=== PATIENT | male | born 1985 | race Caucasian/White ===

== ENCOUNTER → 2016-09-16 | Outpatient (CLI) | payer BC | LOC: M LAB 13:59 | PROVIDERS: ATTEND Internal Medicine | DX: Z13.1 Encounter for screening for diabetes mellitus (principal); I10 Essential (primary) hypertension ==

== ENCOUNTER → 2016-09-30 | Outpatient (REF) | payer BC | LOC: M SFHCPLAZ 16:26 | DX: I10 Essential (primary) hypertension (principal) ==

== ENCOUNTER → 2017-04-23 | Outpatient (CLI) | payer BC ==
--- NOTE | 2017-04-23 17:39 | REP ---
Clinical: Shortness of breath . Comparison: 12/27/2011 . Technique: PA and lateral. Findings: The mediastinum and cardiac silhouette are normal. The lung padgett are clear and without acute consolidation, effusion, or pneumothorax. The skeletal structures are intact and normal. Impression: 1. No acute cardiopulmonary process. Signed by Dion Marquez MD 04/23/2017 05:31 P
== END ==
LOC: M RAD 17:21
PROVIDERS: ATTEND Emergency Medicine
DX: R06.02 Shortness of breath (principal)

== ENCOUNTER → 2017-05-11 | Outpatient (CLI) | payer BC | LOC: M WUC 16:19 | PROVIDERS: ATTEND Physician Assistant | DX: Z02.1 Encounter for pre-employment examination (principal) ==

== ENCOUNTER 2017-08-30 21:18 | Emergency (ER) | payer BC ==
[2017-08-30] MEDS: GASTROGRAFIN SOLUTION 30ML PO (22:15)
[2017-08-30] MEDS: GASTROGRAFIN SOLUTION 30ML (Q9963) PO (22:45)
[2017-08-30 22:47] LABS: BASO # 0.1 10^3/uL (0.0-0.2); BASO % 0.8 % (0.0-1.0); EOS # 0.1 10^3/uL (0.0-0.50); EOS % 1.4 % (0.0-3.0); HEMATOCRIT 46.8 % (42.0-52.0); HEMOGLOBIN 16.3 g/dl (14.0-18.0); IMMATURE GRANULOCYTE # 0.1 10^3/uL (0-0); IMMATURE GRANULOCYTE % 0.5 % (0-0); LYMPH # 2.5 10^3/uL (1.5-6.5); LYMPH % 25.6 % (24.0-44.0); MEAN CORPUSCULAR HEMOGLOBIN 31.8 pg (27.0-33.0); MEAN CORPUSCULAR HGB CONC 34.8 g/dl (32.0-36.5); MEAN CORPUSCULAR VOLUME 91.2 fl (80.0-96.0); MONO # 0.4 10^3/uL (0.0-0.8); MONO % 4.5 % (0.0-5.0); NEUTROPHILS # 6.5 10^3/uL (1.8-7.7); NEUTROPHILS % 67.2 % (36.0-66.0); PLATELET COUNT, AUTOMATED 231 10^3/uL (150-450); RED BLOOD COUNT 5.13 10^6/uL (4.30-6.10); RED CELL DISTRIBUTION WIDTH 12.3 % (11.5-14.5); WHITE BLOOD COUNT 9.8 10^3/uL (4.0-10.0)
[2017-08-30 22:50] LABS: APPEARANCE, URINE CLEAR (CLEAR); BACTERIA, URINE AUTO NEGATIVE (NEGATIVE); BILIRUBIN, URINE AUTO NEGATIVE (NEGATIVE); BLOOD, URINE BLOOD NEGATIVE (NEGATIVE); COLOR, URINE YELLOW (YELLOW); GLUCOSE, URINE (UA) AUTO 1+ mg/dL (NEGATIVE); KETONE, URINE AUTO NEGATIVE (NEGATIVE); LEUKOCYTE ESTERASE, URINE AUTO NEGATIVE (NEGATIVE); NITRITE, URINE AUTO NEGATIVE (NEGATIVE); PROTEIN, URINE AUTO NEGATIVE (NEGATIVE); RBC, URINE AUTO 0 /HPF (0-3); SPECIFIC GRAVITY URINE AUTO 1.018 (1.002-1.035); SQUAMOUS EPITHELIAL CELL UR AU 0 /HPF (0-6); WBC, URINE AUTO 0 /HPF (0-3)
[2017-08-30] MEDS: METOCLOPRAMIDE INJ 10MG/2ML VIAL (J2765) IV (22:55)
[2017-08-30] MEDS: KETOROLAC 30 MG/ML VIAL (J1885) IV (22:56)
[2017-08-30 23:14] LABS: ALBUMIN/GLOBULIN RATIO 1.38 (1.00-1.93); ALKALINE PHOSPHATASE 65 U/L (45-117); ALT/SGPT 136 U/L (12-78); AMYLASE 66 U/L (25-115); ANION GAP 4 MEQ/L (8-16); AST/SGOT 53 U/L (7-37); BILIRUBIN,DIRECT 0.1 MG/DL (0.0-0.2); BILIRUBIN,TOTAL 0.5 MG/DL (0.2-1.0); BLOOD UREA NITROGEN 8 MG/DL (7-18); C REACTIVE PROTEIN QUANTITATIV < 0.30 MG/DL (0.00-0.30); CALCIUM LEVEL 8.7 MG/DL (8.5-10.1); CARBON DIOXIDE LEVEL 30 MEQ/L (21-32); CHLORIDE LEVEL 106 MEQ/L (98-107); CREATININE FOR GFR 0.76 MG/DL (0.70-1.30); GLOMERULAR FILTRATION RATE > 60.0 (>60); GLUCOSE, FASTING 170 MG/DL (70-105); LIPASE 313 U/L (73-393); POTASSIUM SERUM 3.9 MEQ/L (3.5-5.1); SODIUM LEVEL 140 MEQ/L (136-145); TOTAL PROTEIN 6.9 GM/DL (6.4-8.2)
[2017-08-30] MEDS ORDERED: ISOVUE-370 76% 100ML VIAL (Q9967) As Ordered (23:29)
== END 2017-08-31 00:46 | disposition home or self-care (01) ==
LOC: M ED 08-31 00:46
DX: K31.84 Gastroparesis (principal); R73.9 Hyperglycemia, unspecified; I10 Essential (primary) hypertension; J45.909 Unspecified asthma, uncomplicated; Z87.19 Personal history of other diseases of the digestive system; F17.210 Nicotine dependence, cigarettes, uncomplicated
CPT/HCPCS: Q9963

== ENCOUNTER 2018-01-14 06:20 | Emergency (ER) | payer BC | END 2018-01-14 06:57 | disposition home or self-care (01) | LOC: M ED 06:20 | DX: M25.571 Pain in right ankle and joints of right foot (principal) | CPT/HCPCS: 73610 ==

== ENCOUNTER 2018-03-05 22:02 | Emergency (ER) | payer SELFPAY, BC ==
[2018-03-05] MEDS: ONDANSETRON 4MG/2ML VIAL (J2405) IV (23:16)
[2018-03-05] MEDS: NS 1,000 ML IV (23:16)
[2018-03-05] MEDS: MORPHINE 4 MG/ML 1ML VIAL/SYRINGE (J2270) IV (23:16)
[2018-03-05 23:19] LABS: BASO # 0.1 10^3/uL (0.0-0.2); BASO % 0.8 % (0.0-1.0); EOS # 0.2 10^3/uL (0.0-0.50); EOS % 2.1 % (0.0-3.0); HEMATOCRIT 45.4 % (42.0-52.0); HEMOGLOBIN 15.8 g/dl (13.5-17.5); IMMATURE GRANULOCYTE % 0.1 % (0-3.0); LYMPH # 2.8 10^3/uL (1.5-4.5); LYMPH % 37.2 % (24.0-44.0); MEAN CORPUSCULAR HEMOGLOBIN 31.9 pg (27.0-33.0); MEAN CORPUSCULAR HGB CONC 34.8 g/dl (32.0-36.5); MEAN CORPUSCULAR VOLUME 91.5 fl (80.0-96.0); MONO # 0.5 10^3/uL (0.0-0.8); NEUTROPHILS # 4.1 10^3/uL (1.8-7.7); NEUTROPHILS % 53.8 % (36.0-66.0); PLATELET COUNT, AUTOMATED 225 10^3/uL (150-450); RED BLOOD COUNT 4.96 10^6/uL (4.30-6.10); RED CELL DISTRIBUTION WIDTH 12.5 % (11.5-14.5); WHITE BLOOD COUNT 7.5 10^3/uL (4.0-10.0)
[2018-03-05 23:25] LABS: KETONE, URINE AUTO RFX NEGATIVE (NEGATIVE); LEUKOCYTE ESTERASE UR AUTO RFX NEGATIVE (NEGATIVE); MUCUS, URINE RFX SMALL (NEGATIVE); NITRITE, URINE AUTO RFX NEGATIVE (NEGATIVE); RBC, URINE AUTO RFX 0 /HPF (0-3); SPECIFIC GRAVITY UR AUTO RFX 1.023 (1.002-1.035); SQUAM EPITHELIAL CELL UR AURFX 0 /HPF (0-6); WBC, URINE AUTO RFX 1 /HPF (0-3)
[2018-03-05 23:39] LABS: ALBUMIN 4.2 GM/DL (3.2-5.2); ALBUMIN/GLOBULIN RATIO 1.27 (1.00-1.93); ALKALINE PHOSPHATASE 86 U/L (45-117); ALT/SGPT 116 U/L (12-78); ANION GAP 6 MEQ/L (8-16); AST/SGOT 48 U/L (7-37); BILIRUBIN,DIRECT 0.2 MG/DL (0.0-0.2); BILIRUBIN,TOTAL 0.7 MG/DL (0.2-1.0); BLOOD UREA NITROGEN 11 MG/DL (7-18); CALCIUM LEVEL 8.8 MG/DL (8.5-10.1); CARBON DIOXIDE LEVEL 31 MEQ/L (21-32); CHLORIDE LEVEL 107 MEQ/L (98-107); CREATININE FOR GFR 0.86 MG/DL (0.70-1.30); GLOMERULAR FILTRATION RATE > 60.0 (>60); GLUCOSE, FASTING 76 MG/DL (70-100); LIPASE 227 U/L (73-393); POTASSIUM SERUM 4.6 MEQ/L (3.5-5.1); SODIUM LEVEL 144 MEQ/L (136-145); TOTAL PROTEIN 7.5 GM/DL (6.4-8.2)
[2018-03-05 23:39] LABS: LACTIC ACID SEPSIS PROTOCOL 0.5 MMOL/L (0.4-2.0)
[2018-03-06] MEDS: GASTROGRAFIN SOLUTION 30ML PO ×2 (00:51→01:10)
[2018-03-06] MEDS ORDERED: ISOVUE-370 76% 100ML VIAL (Q9967) As Ordered (02:16)
[2018-03-06] MEDS: KETOROLAC 30 MG/ML VIAL (J1885) IV (02:19)
== END 2018-03-06 04:37 | disposition home or self-care (01) ==
LOC: M ED 03-06 04:37
DX: R10.84 Generalized abdominal pain (principal); K52.9 Noninfective gastroenteritis and colitis, unspecified; K76.0 Fatty (change of) liver, not elsewhere classified; K57.92 Diverticulitis of intestine, part unspecified, without perforation or abscess without bleeding; K31.84 Gastroparesis
CPT/HCPCS: J2270

== ENCOUNTER 2018-06-11 07:50 | Emergency (ER) | payer OTHER, SELFPAY ==
[2018-06-11 09:02] LABS: BASO # 0.1 10^3/uL (0.0-0.2); BASO % 0.9 % (0.0-1.0); EOS # 0.2 10^3/uL (0.0-0.50); EOS % 1.7 % (0.0-3.0); HEMATOCRIT 50.7 % (42.0-52.0); HEMOGLOBIN 17.5 g/dl (13.5-17.5); IMMATURE GRANULOCYTE % 0.6 % (0-3.0); LYMPH # 2.4 10^3/uL (1.5-4.5); LYMPH % 26.9 % (24.0-44.0); MEAN CORPUSCULAR HEMOGLOBIN 31.8 pg (27.0-33.0); MEAN CORPUSCULAR HGB CONC 34.5 g/dl (32.0-36.5); MEAN CORPUSCULAR VOLUME 92.2 fl (80.0-96.0); MONO # 0.6 10^3/uL (0.0-0.8); MONO % 6.2 % (0.0-5.0); NEUTROPHILS # 5.6 10^3/uL (1.8-7.7); NEUTROPHILS % 63.7 % (36.0-66.0); PLATELET COUNT, AUTOMATED 230 10^3/uL (150-450); RED CELL DISTRIBUTION WIDTH 12.8 % (11.5-14.5); WHITE BLOOD COUNT 8.8 10^3/uL (4.0-10.0)
[2018-06-11 09:32] LABS: ALBUMIN 4.1 GM/DL (3.2-5.2); ALBUMIN/GLOBULIN RATIO 1.21 (1.00-1.93); ALKALINE PHOSPHATASE 84 U/L (45-117); ALT/SGPT 95 U/L (12-78); ANION GAP 6 MEQ/L (8-16); AST/SGOT 34 U/L (7-37); BILIRUBIN,TOTAL 0.3 MG/DL (0.2-1.0); BLOOD UREA NITROGEN 9 MG/DL (7-18); CALCIUM LEVEL 9.3 MG/DL (8.5-10.1); CARBON DIOXIDE LEVEL 25 MEQ/L (21-32); CHLORIDE LEVEL 110 MEQ/L (98-107); CREATININE FOR GFR 0.74 MG/DL (0.70-1.30); GLOMERULAR FILTRATION RATE > 60.0 (>60); GLUCOSE, FASTING 99 MG/DL (70-100); POTASSIUM SERUM 4.7 MEQ/L (3.5-5.1); SODIUM LEVEL 141 MEQ/L (136-145); TOTAL PROTEIN 7.5 GM/DL (6.4-8.2)
[2018-06-11 10:22] LABS: HEPATITIS B SURFACE ANTIBODY POSITIVE (POSITIVE)
[2018-06-11 10:32] LABS: HEPATITIS B SURFACE ANTIGEN NEGATIVE (NEGATIVE)
[2018-06-11 11:00] LABS: HIV SCREEN CENTAUR EXPOSED NEGATIVE (NEGATIVE)
[2018-06-11 11:01] LABS: HEPATITIS C VIRUS ABY INDEX < 0.0 INDEX (<0.8)
== END 2018-06-11 09:24 | disposition home or self-care (01) ==
LOC: M ED 07:50
DX: S61.241A Puncture wound with foreign body of left index finger without damage to nail, initial encounter (principal); Z77.21 Contact with and (suspected) exposure to potentially hazardous body fluids; W46.1XXA Contact with contaminated hypodermic needle, initial encounter; Y92.9 Unspecified place or not applicable; Y93.F9 Activity, other caregiving; Y99.0 Civilian activity done for income or pay; Z72.0 Tobacco use
CPT/HCPCS: 80053

== ENCOUNTER 2018-09-05 23:05 | Emergency (ER) | payer OTHER ==
[~2018-09-05] VITALS: Ht 182.9 cm; Wt 118.2 kg
[~2018-09-05 23:05] MED LIST: REGL10TA6 PO
[2018-09-06 00:20] VITALS: BP 136/90
[2018-09-06 00:34] LABS: BASO # 0.1 10^3/uL (0.0-0.2); BASO % 0.7 % (0.0-1.0); EOS # 0.1 10^3/uL (0.0-0.50); EOS % 1.3 % (0.0-3.0); HEMATOCRIT 47.6 % (42.0-52.0); HEMOGLOBIN 16.6 g/dl (13.5-17.5); LYMPH # 3.8 10^3/uL (1.5-4.5); LYMPH % 34.4 % (24.0-44.0); MEAN CORPUSCULAR HEMOGLOBIN 31.4 pg (27.0-33.0); MEAN CORPUSCULAR HGB CONC 34.9 g/dl (32.0-36.5); MONO # 0.5 10^3/uL (0.0-0.8); MONO % 4.4 % (0.0-5.0); NEUTROPHILS # 6.4 10^3/uL (1.8-7.7); NEUTROPHILS % 58.9 % (36.0-66.0); PLATELET COUNT, AUTOMATED 247 10^3/uL (150-450); RED BLOOD COUNT 5.29 10^6/uL (4.30-6.10); WHITE BLOOD COUNT 10.9 10^3/uL (4.0-10.0)
[2018-09-06 00:49] LABS: ALBUMIN 4.5 GM/DL (3.2-5.2); ALT/SGPT 122 U/L (12-78); BILIRUBIN,TOTAL 0.5 MG/DL (0.2-1.0); BLOOD UREA NITROGEN 8 MG/DL (7-18); CALCIUM LEVEL 8.8 MG/DL (8.5-10.1); CARBON DIOXIDE LEVEL 27 MEQ/L (21-32); CHLORIDE LEVEL 108 MEQ/L (98-107); GLOMERULAR FILTRATION RATE > 60.0 (>60); GLUCOSE, FASTING 77 MG/DL (70-100); SODIUM LEVEL 142 MEQ/L (136-145); TOTAL PROTEIN 7.5 GM/DL (6.4-8.2)
[2018-09-06 00:58] LABS: HIVEXPOSED0 NEGATIVE (NEGATIVE)
[2018-09-07 10:47] LABS: HEPATITIS B SURFACE ANTIBODY POSITIVE (POSITIVE)
[2018-09-07 10:57] LABS: HEPATITIS B SURFACE ANTIGEN NEGATIVE (NEGATIVE)
== END 2018-09-06 00:23 | disposition home or self-care (01) ==
LOC: M ED 23:05
DX: Z77.21 Contact with and (suspected) exposure to potentially hazardous body fluids (principal); W46.1XXA Contact with contaminated hypodermic needle, initial encounter; Y92.89 Other specified places as the place of occurrence of the external cause

== ENCOUNTER → 2018-12-13 | Outpatient (CLI) | payer BC ==
--- NOTE | 2018-12-17 15:03 | SLEEPHOME ---
DATE OF PROCEDURE: 12/13/2018 ORDERED BY: JUAN Ann [facility] home sleep testing was performed due to concern for the obstructive sleep apnea syndrome. For testing a nocturnal T3 respiratory monitoring device was used. Continuous record was made of pulse, oxygen saturation, airflow, chest and abdominal strain and body position. 10 hours and 59 minutes of data were reviewed. There were 8 hours and 22 minutes marked as time in bed. During the interval marked time in bed, there were 129 respiratory events identified of 10 seconds in duration or greater for a respiratory event index of 15.4. The events were primarily obstructive. Baseline pulse rate 81 beats per minute. Pulse rate ranged 58-112. Baseline saturation 95%. Saturations fell to 84%. Testing was performed in both the supine and nonsupine positions. IMPRESSION: Abnormal home sleep testing with repetitive respiratory events and oxygen desaturations to 84% with a respiratory event index of 15.4 is consistent with the obstructive sleep apnea syndrome. RECOMMENDATIONS: The patient should be encouraged to undergo formal sleep evaluation and in laboratory pressure titration.
== END ==
LOC: M SLEEP HO 11:36
PROVIDERS: ATTEND Physician Assistant
DX: R40.0 Somnolence (principal)

== ENCOUNTER → 2021-09-29 | Outpatient (CLI) | payer OTHER | LOC: M PLAIMG 12:47 | PROVIDERS: ATTEND Family Medicine | DX: H53.9 Unspecified visual disturbance (principal); R90.89 Other abnormal findings on diagnostic imaging of central nervous system ==

== ENCOUNTER 2024-05-20 09:00 | Day surgery (SDC) | payer BC ==
[~2024-05-20] VITALS: Ht 182.9 cm; Wt 118.3 kg
[2024-05-20] MEDS: NS 1,000 ML IV ONE (06:00)
[~2024-05-20 09:00] MED LIST changes: +METO1TAB7 PO; +VALS80TA PO
[2024-05-20] MEDS ORDERED: propofoL 200 MG/20 ML VIAL As Ordered ONE (10:06)
[2024-05-20 11:05] VITALS: BP 126/67; TEMP 97.9; O2SAT 99
== END 2024-05-20 11:14 | disposition home or self-care (01) ==
LOC: M OPP 09:00
PROVIDERS: ATTEND Internal Medicine Gastroenterology
DX: K58.0 Irritable bowel syndrome with diarrhea (principal); K21.00 Gastro-esophageal reflux disease with esophagitis, without bleeding; I10 Essential (primary) hypertension; Z87.19 Personal history of other diseases of the digestive system; G47.30 Sleep apnea, unspecified; Z79.899 Other long term (current) drug therapy; F17.210 Nicotine dependence, cigarettes, uncomplicated